=== PATIENT | female | born 1950 | race African-American/Black ===

== ENCOUNTER → 2019-06-04 | Outpatient (CLI) | payer OTHER ==
[~2019-06-04] VITALS: Ht 154.9 cm; Wt 74.0 kg
[~2019-06-04] MED LIST: CALCIUM 600 +1 EAC1 PO; CRESTOR20 MG PO; GLUCOPHAGE XR500 MG PO; GLUCOTROL5 MG PO; JANUVIA100 MG PO; NEXIUM40 MG PO
[2019-06-04 10:21] VITALS: BP 123/85
--- NOTE | 2019-06-04 10:48 | NUR ---
Pain Clinic Assessment: 1. History of Osteoarthritis: Not Applicable History of Rheumatoid Arthritis: Not Applicable 2. Height: 5 ft. 1 in. 154.9 cm. Weight: 163.2 lb. oz. 74.027 kg. Patient's BMI: 30.9 3. Vital Signs: BP: 123/85 Pulse: 84 Resp: 14 Temp: 02 Sat: 100 ECG Mon: 4. Pain Intensity: 9 5. Fall Risk: Dizziness: N Needs help standing or walking: N Fallen in the last 3 months: N Fall risk comments: 6. Patient on Blood Thinner: None 7. History of Hypertension: Y 8. Opioid Therapy greater than 6 weeks: N Opiate Contract Signed: 9. Risk Assessment Tool Provided: LOW RISK 10/26 10. Functional Assessment Tool: 11. Recreational Drug Use: Never Drug Type: Tobacco Use: Never Smoker Tobacco Type: Amount or Packs/day: How Many Years: Alcohol Use: Yes Frequency: Monthly Quant: 2
--- NOTE | 2019-06-07 16:33 | HPC ---
[facility] [place] [address] PAIN MANAGEMENT CONSULTATION Name: PAOLA SONG Reinier Room #: REG DONN PostBebe#: [id number] Admission: 06/04/19 Attend Phys: Trey Mccracken MD Discharge: Date of : 48 Report #: [id number] THIS REPORT FOR: //name// CC: Trey Wang DATE OF SERVICE: 06/04/2019 CHIEF COMPLAINT: Cervical pain radiating into the shoulders bilaterally with radiation along the C5 referral pattern into the medial scapula. The patient presents today with cervical radiculopathy. She responded well to cervical epidural injection about 3 years ago, sought me out for another injection today. She says she has had a history of recurring cervical radiculopathy. Today, the pain is 9/10, shooting, aching, sharp, stabbing. MEDICATIONS: Metformin, Januvia, omeprazole, olmesartan, magnesium, Caltrate, glipizide, lovastatin. ALLERGIES: None. PAST MEDICAL HISTORY: Positive for hypertension, diabetes and osteoarthritis with diffuse joint aches and pains. REVIEW OF SYSTEMS: Positive for loss of hearing, nocturia, depression and insomnia. 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 She denies use of tobacco, drinks alcohol once or twice a month in a social setting. PHYSICAL EXAMINATION: GENERAL: A pleasant 68-year-old female, alert and oriented. No signs of depression or anxiety. VITAL SIGNS: Blood pressure 123/85, heart rate 84, respirations 14, O2 sat is 98. BMI is 30.9. She moves from a sitting to standing position. Her gait is stable without antalgic features. No evidence of myelopathy. HEENT: Normal. NECK: Supple, restricted range of motion in flexion, extension, sxts-ke-aspi rotation and lateral tilt. Tenderness in the occiput as well as along the paravertebral muscles. Tenderness on the right extends along the medial scapula. EXTREMITIES: Good strength in the upper extremities is noted. No weakness in any of the upper extremity muscle groups. Sensation is intact with no asymmetry. Deep tendon reflexes are 2+ biceps, triceps and brachioradialis. Normal deep tendon reflexes in the lower extremity. There is no Yeager sign. [address] [address] PAIN MANAGEMENT CONSULTATION Name: PAOLA SONG Reinier Room #: [facility] [id number] Admission: 06/04/19 Attend Phys: Trey Mccracken MD Discharge: Date of : 48 Report #: [id number] She has positive Spurling on the right. IMPRESSION: Cervical radiculopathy. RECOMMENDATIONS: Cervical epidural injection C6-C7 under fluoroscopic guidance. Preauthorization is required. We will schedule her for a procedure as soon as possible. <ELECTRONICALLY SIGNED> By: Trey Mccracken MD 06/07/19 1633 [id number] Trey Mccracken MD /erika
== END ==
LOC: PAIN 08:17
DX: M54.12 Radiculopathy, cervical region (principal); I10 Essential (primary) hypertension; E11.9 Type 2 diabetes mellitus without complications; M19.90 Unspecified osteoarthritis, unspecified site; Z79.84 Long term (current) use of oral hypoglycemic drugs; Z79.899 Other long term (current) drug therapy

== ENCOUNTER → 2019-06-11 | Outpatient (CLI) | payer OTHER ==
[~2019-06-11] VITALS: Ht 154.9 cm; Wt 73.9 kg
--- NOTE | ~2019-06-11 | HPC ---
[facility] [place] [address] PAIN MANAGEMENT CONSULTATION Name: PAOLA SONG Reinier Room #: REG DONN Post.#: [id number] Admission: 06/11/19 Attend Phys: Trey Mccracken MD Discharge: Date of : 48 Report #: [id number] THIS REPORT FOR: //name// CC: Trey Wang MD DATE OF SERVICE: 06/11/2019 Followup visit for cervical radiculopathy. I saw the patient on 06/04/2019. We were required to undergo a preauthorization for the cervical epidural injection recommended on that visit. She is here today for the procedure. There have been no significant changes in her history since her visit 1 week ago. I reviewed the procedure with her in some detail. Potential risks and benefits were discussed. She understands that she may see a short-term elevation in her blood sugars. She is diabetic. She understands that she may have some soreness and will use ice tonight. Other risks were identified. Questions were answered. PHYSICAL EXAMINATION: GENERAL: She is pleasant, anxious, ready to go for her procedure. VITAL SIGNS: Blood pressure 125/83, heart rate 92, respirations 16. The rest of her physical exam is as noted on 06/04/2019. IMPRESSION: Cervical radiculopathy. PROCEDURE: Cervical epidural injection under fluoroscopic guidance. DESCRIPTION OF PROCEDURE: She was taken to fluoroscopic suite, placed prone, skin prepped with ChloraPrep. Skin anesthetized over the C6-C7 interspace. A 20-gauge Tuohy epidural needle was advanced in the epidural space with [id number] technique. There was no blood or CSF aspirated. A 1 mL of Omnipaque was injected. Good spread of dye observed in the epidural space, was followed by 3 mL of 0.5% lidocaine mixed with 80 mg of triamcinolone. She tolerated the procedure well and was observed for 45 minutes and discharged. Followup visit planned as needed. By: [id number] Trey Mccracken MD /nt
[2019-06-11 15:12] VITALS: BP 125/83
--- NOTE | 2019-06-11 15:41 | NUR ---
Pain Clinic Assessment: 1. History of Osteoarthritis: Not Applicable History of Rheumatoid Arthritis: Not Applicable 2. Height: 5 ft. 1 in. 154.9 cm. Weight: 163.0 lb. oz. 73.936 kg. Patient's BMI: 30.8 3. Vital Signs: BP: 125/83 Pulse: 92 Resp: 16 Temp: 02 Sat: 100 ECG Mon: 4. Pain Intensity: 6 5. Fall Risk: Dizziness: N Needs help standing or walking: N Fallen in the last 3 months: N Fall risk comments: 6. Patient on Blood Thinner: None 7. History of Hypertension: Y 8. Opioid Therapy greater than 6 weeks: N Opiate Contract Signed: 9. Risk Assessment Tool Provided: LOW RISK 10/26 10. Functional Assessment Tool: 11. Recreational Drug Use: Never Drug Type: Tobacco Use: Never Smoker Tobacco Type: Amount or Packs/day: How Many Years: Alcohol Use: Yes Frequency: Quant:
== END | disposition home or self-care (01) ==
LOC: PAIN 07:08
DX: M54.12 Radiculopathy, cervical region (principal); Z79.899 Other long term (current) drug therapy